=== PATIENT | female | born 1970 | race Caucasian/White ===

== ENCOUNTER 2016-12-27 16:00 | Inpatient (IN) | payer OTHER ==
--- NOTE | ~2016-12-27 | CR63 ---
[facility] A Service of [facility] & [facility] RADIOLOGY TEXT RESULTS PATIENT: AKIN HERNANDEZ LOCATION: C2A 242-01 : [birth year] UNIT #: [id number] AGE: [address]: Deuce March MD SEX: F ORDER DR: [id number] [facility] [address] [place], [place] [address] [id number] I MR#: [id number] Acc #: [id number] NAME: AKIN HERNANDEZ : 1970 SEX: F STUDY DATE/TIME: 01/02/2017 7:47 UNIT: C2A ROOM: 242 STUDY DESCRIPTION: CR Chest 2 View Attending Physician: Deuce March M.D. Ordering Physician: Deuce March M.D. Primary Care Physician: Edwin Barrera M.D. MEDICAL IMAGING REPORT This report is preliminary unless electronic signature is present EXAM Chest x-ray 01/02 INDICATIONS Cough, congestion and fever and shortness of air for 1 week. Pneumonia. FINDINGS 2 views of the chest are compared with 12/31/2016. There is a small to moderate hiatal hernia. Heart size is stable. There is some mild atelectasis in the bases and left mid lung. Lungs otherwise are clear. No pneumothorax. IMPRESSION Mild atelectasis in the bases and left mid lung. Stable hiatal hernia. Dictated by... Pop Mcallister Jr., M.D. THIS IS AN ELECTRONICALLY VERIFIED REPORT Pop Mcallister Jr., M.D. at 01/02/2017 4:41 PM ESPERANZA/barbara TD: 01/02/2017 08:02 JOB #: [id number] MEDICAL IMAGING REPORT Page 1 of 1 COPY
--- NOTE | ~2016-12-27 | EKG ---
PATIENT: AKIN HERNANDEZ UNIT #: [id number] Ventricular Rate: 91 BPM Atrial Rate: 91 BPM P-R Interval: 128 ms QRS Duration: 76 ms Q-T Interval: 372 ms QTC Calculation(Bezet): 457 ms P [facility]: 52 degrees Calculated R [facility]: 46 degrees Calculated T [facility]: 16 degrees Diagnosis Line: Normal sinus rhythm Diagnosis Line: Low voltage QRS Diagnosis Line: Borderline ECG Diagnosis Line: When compared with ECG of 27-JUL-2015 21:23, Diagnosis Line: Nonspecific T wave abnormality now evident in Diagnosis Line: Inferior leads Diagnosis Line: Confirmed by JEROD HORNER MD ([id number]) on 12/28/2016 Diagnosis Line: 6:14:05 AM INTERPRETING MD: EVENS PEÑA
--- NOTE | ~2016-12-27 | DS ---
Unit #: [id number] #: [id number] Patient: AKIN HERNANDEZ [id number] [address] [address] [id number] I MR#: [id number] NAME: KAIN HERNANDEZ ROOM: 242 Age: 46 Sex: F Admission Date: 12/27/2016 : 1970 Discharge Date: 01/02/2017 Attending Physician: Deuce March M.D. Primary Care Physician: Edwin Barrera M.D. DISCHARGE SUMMARY DISCHARGE DIAGNOSES 1. Acute hypoxemic respiratory failure. 2. Right middle lobe community acquired pneumonia. 3. Asthma exacerbation. 4. History of gastroesophageal reflux disease with large hiatal hernia. 5. Adult onset diabetes mellitus. 6. Obesity. 7. Anxiety/depression. DISCHARGE MEDICATIONS 1. Albuterol inhaler q.4 h. p.r.n. 2. Combivent 1 puff q.i.d. 3. Prednisone 40 mg for 4 days, decreasing by 10 mg every 4 days until off. 4. Ceclor 500 mg t.i.d. times 2 days. 5. Symbicort 160/4.5 two puffs b.i.d. 6. Pregabalin 50 mg t.i.d. 7. Sertraline 200 mg daily. 8. Atorvastatin 80 mg daily. 9. Buspirone 30 mg t.i.d. 10. Clonazepam 2 mg t.i.d. 11. Lantus 43 units daily. 12. Singulair 10 mg daily. 13. Prilosec 40 mg daily. FOLLOWUP Follow up in my office in two weeks. HOSPITAL COURSE The patient is a 46-year-old white female who we were asked to admit through the emergency room. She has been seen in our office for asthma, gastroesophageal reflux disease, hiatal hernia with reflux causing diffuse interstitial infiltrates. Please see admission history and physical. She was admitted with hypoxemic respiratory failure, asthma exacerbation and a right middle lobe pneumonia. Her white count was 9,300. Hematocrit was 37. She desaturated in the emergency room. She was treated with inhaled bronchodilators, IV Solu-Medrol and antibiotics with Rocephin and Zithromax. She had slow but gradual improvement. Her steroids were weaned. She was changed to p.o. antibiotics. Chest x-ray on the day of discharge showed some minimal left lower lobe atelectasis, but clearing of the right middle lobe infiltrate. Her wheezes had improved. Her oxygenation improved and her O2 saturations remained 93%-91% with ambulation. She will be discharged home on the above mentioned medications, to follow up in my office in two weeks. During her Unit #: [id number] #: [id number] Patient: MANUEL HERNANDEZA hospitalization she was placed on sliding scale insulin for hyperglycemia. Her last four glucoses were 216, 194, 93 and 231. She has been recommended on a diabetic diet. Dictated by... Bruce Meléndez/stewart TD: 01/03/2017 08:14 JOB #: [id number] CC: Deuce March M.D. DISCHARGE SUMMARY Page 1 of 1 X Deuce March MD X DISCHARGE SUMMARY
--- NOTE | ~2016-12-27 | CR63 ---
[facility] A Service of [facility] RADIOLOGY TEXT RESULTS PATIENT: AKIN HERNANDEZ LOCATION: [place] [address]-01 : [birth year] UNIT #: [id number] AGE: [address]: Deuce March MD SEX: F ORDER DR: [id number] [facility] [address] [place], [place] [address] [id number] E MR#: [id number] Acc #: [id number] NAME: AKIN HERNANDEZ : 1970 SEX: F STUDY DATE/TIME: 12/27/2016 14:33 UNIT: [facility] ROOM: STUDY DESCRIPTION: CR Chest 2 View Attending Physician: Pop Reese M.D. Ordering Physician: Pop Reese M.D. Primary Care Physician: Edwin Barrera M.D. MEDICAL IMAGING REPORT This report is preliminary unless electronic signature is present EXAM Chest x-ray 12/27/2016. HISTORY 46-year-old female in the ED complaining of 2-day history of shortness of air, cough, and congestion. TECHNIQUE PA and lateral upright chest series. FINDINGS The exam shows mild infiltrate in the right middle lobe partially obscuring the right heart border. Remaining portions of both lungs are clear. Mild cardiomegaly is stable. No dense airspace consolidation or pleural effusion. IMPRESSION Mild right middle lobe infiltrate. Dictated by... Edwin Chua M.D. THIS IS AN ELECTRONICALLY VERIFIED REPORT Edwin Chua M.D. at 12/28/2016 1:59 PM Mel TD: 12/27/2016 16:38 JOB #: [id number] MEDICAL IMAGING REPORT Page 1 of 1 COPY
--- NOTE | ~2016-12-27 | CR63 ---
[facility] A Service of [facility] RADIOLOGY TEXT RESULTS PATIENT: AKIN HERNANDEZ LOCATION: A 242-01 : [birth year] UNIT #: [id number] AGE: [address]: Deuce March MD SEX: F ORDER DR: [id number] [facility] [address] [place], [place] [address] [id number] I MR#: [id number] Acc #: [id number] NAME: AKIN HERNANDEZ : 1970 SEX: F STUDY DATE/TIME: 12/31/2016 7:18 UNIT: C2A ROOM: 242 STUDY DESCRIPTION: CR Chest 2 View Attending Physician: Deuce March M.D. Ordering Physician: Deuce March M.D. Primary Care Physician: Edwin Barrera M.D. MEDICAL IMAGING REPORT This report is preliminary unless electronic signature is present EXAM PA and lateral chest, 12/31 COMPARISON 12/27/2016 HISTORY Follow up pneumonia, shortness of breath with activity for 3-4 days. FINDINGS PA and lateral views of the chest are obtained. This study is directly compared to the patient's last study. Vascular interstitial markings have decreased. Heart size is stable. There is some volume loss in the left lower lobe posteriorly likely representing an area of airspace disease. The right middle lobe infiltrate has improved. CONCLUSION Minimal airspace disease left lower lobe posteriorly. Improvement in the right middle lobe infiltrate. Decrease in passive congestion and interstitial infiltrates since the last study. STAT * RESULT Dictated by... Rakesh Maki M.D. THIS IS AN ELECTRONICALLY VERIFIED REPORT Rakesh Maki M.D. at 01/01/2017 7:31 AM Berny TD: 12/31/2016 09:20 JOB #: [id number] [facility] A Service of [facility] RADIOLOGY TEXT RESULTS PATIENT: AKIN HERNANDEZ LOCATION: [place] [address]- : [birth year] UNIT #: [id number] AGE: [address]: Deuce March MD SEX: F ORDER DR: MEDICAL IMAGING REPORT Page 1 of 1 COPY
--- NOTE | ~2016-12-27 | CO ---
Unit #: [id number] #: [id number] Patient: AKIN HERNANDEZ [id number] [address] [address] [id number] I MR#: [id number] NAME: AKIN HERNANDEZ ROOM: 242 Age: 46 Sex: F Admission Date: 12/27/2016 : 1970 Attending Physician: Deuce March M.D. Primary Care Physician: Edwin Barrera M.D. CONSULTATION REPORT HISTORY OF PRESENT ILLNESS Ms. Hernandez is a 46-year-old female with a history of asthma, gastroesophageal reflux, adult onset diabetes, anxiety, depression, who presented with a three-day history of decreased shortness of breath, cough, wheezing and some diarrhea. She had been in her normal state of health prior to then. She does have a history of asthma. She is maintained on Breo. She says her breathing has not been as good on Breo as it was on Symbicort. She was seen in her primary care physician's office, Dr. Barrera at [facility], who noted an O2 saturation of 90% and told her to go to the emergency room. She was seen here in the emergency room. Chest x-ray revealed a right middle lobe infiltrate. Lab work showed a room air O2 saturation recorded at 92% but desaturations to 85% with ambulation. She was given normal saline one liter IV, p.o. doxycycline, ceftriaxone 2 g IV and then azithromycin 500 mg IV. We were called to admit the patient. Her chemistries are significant for a glucose of 129, BUN of 24, lactic acid 1.3. WBC count was 9,300, hematocrit 37, platelet count normal. She has had history of reflux with aspiration and has seen Dr. Villagomez for this. She said her current symptoms do not mimic that. PAST MEDICAL HISTORY Asthma, adult onset diabetes mellitus, gastroesophageal reflux, anxiety, depression. PAST SURGICAL HISTORY Total abdominal hysterectomy, EGD revealing large hiatal hernia with gastritis, history of colonoscopy with polyps which have been snared. SOCIAL HISTORY Reformed smoker. No alcohol. No illicit drugs. FAMILY HISTORY COPD. ALLERGIES Penicillin, theophylline, IV dye and sulfa. HOME MEDICATIONS 1. Klonopin. 2. BuSpar. 3. Prilosec. 4. Combivent. 5. Albuterol. 6. Lyrica. Unit #: [id number] #: [id number] Patient: AKIN HERNANDEZ 7. Lipitor. 8. Singulair. 9. Lantus. 10. Zoloft. 11. Breo. REVIEW OF SYSTEMS CONSTITUTIONAL: The patient did have fever and chills. HEENT: No rhinorrhea, nasal congestion. PULMONARY: As noted. CARDIAC: No chest pain. GASTROINTESTINAL: Some diarrhea. GENITOURINARY: No hematuria, dysuria. ENDOCRINE: The patient does have a history of adult onset diabetes mellitus. No thyroid dysfunction. NEUROLOGIC: No unilateral weakness or numbness. SKIN: No rash. PSYCHIATRIC: The patient does have a history of anxiety, depression. PHYSICAL EXAMINATION GENERAL APPEARANCE: White female, no distress, obese, sitting in bed, not using any accessory muscles, able to speak in complete sentences. VITAL SIGNS: Blood pressure 127/72. Pulse 79. Respiratory rate 18. Afebrile. HEENT: Normocephalic, atraumatic. Pupils equal, round and reactive. Sclerae nonicteric. Nasal passages patent. Posterior pharynx crowded. Poor dentition. NECK: Supple, thick. Trachea midline. No cervical or supraclavicular lymphadenopathy. LUNGS: Reveal some mild expiratory wheeze. CARDIAC: Regular rate and rhythm. I could not appreciate murmur, rub or gallop. ABDOMEN: Obese, nontender. Bowel sounds present. No hepatosplenomegaly. EXTREMITIES: Without clubbing, cyanosis or edema. NEUROLOGIC: Awake, oriented x3. Cranial nerves grossly intact. Muscle strength symmetric. DIAGNOSTIC STUDIES LABORATORY: Personally reviewed as noted. IMAGING: Personally reviewed as noted. IMPRESSION 1. Right middle lobe pneumonia. 2. Asthma exacerbation. 3. History of reflux. 4. Large hiatal hernia. 5. Adult onset diabetes. 6. Obesity. 7. Anxiety, depression. PLAN We will treat for community-acquired pneumonia with Rocephin and Zithromax. Treat asthma with inhaled bronchodilators and steroids. We will continue home medicines. We will place on sliding scale insulin while on steroids due to history of adult onset diabetes mellitus. Further recommendations pending this. Unit #: [id number] #: [id number] Patient: AKIN HERNANDEZ Dictated by... LorBruce Stack TD: 12/28/2016 12:11 JOB #: [id number] CONSULTATION REPORT Page 1 of 1 X Deuce March MD CONSULTATION REPORT
[2016-12-27 14:28] LABS: BASOPHIL% 0.2 % (0-2.5); HEMOGLOBIN 11.6 gm/dL (12.0-16.0); LYMPHOCYTE# 0.6 X10e3 (1.0-3.5); LYMPHOCYTE% 6.4 % (17.0-45.0); MEAN CELL VOLUME 88.5 FL (83-96); MEAN CORPUSCULAR HEMOGLOBIN 27.8 PG (28-34); MEAN CORPUSCULAR HGB CONC 31.4 g/dL (30-36); MEAN PLATELET VOLUME 8.2 FL (6.5-11.5); MONOCYTE# 0.5 X10e3 (0-1.0); MONOCYTE% 5.2 % (3.0-12.0); NEUTROPHIL# 8.2 X10e3 (1.5-7.1); NEUTROPHIL% 88.2 % (40-75); PLATELET COUNT 162 X10e3 (140-420); RED BLOOD COUNT 4.18 X10e (3.90-5.30); WHITE BLOOD COUNT 9.3 X10e3 (4.0-10.5)
[2016-12-27 14:32] LABS: DIFF IND NO
[2016-12-27 14:45] LABS: BUN/CREATININE RATIO 18.46; CREATININE SERUM 1.3 mg/dL (0.6-1.4); GLOM FILT RATE Estimated 49.5 mL/min (>60); POTASSIUM 3.6 mmol/L (3.5-5.1)
[~2016-12-27 16:00] MED LIST: ADVAIR 2501 DISK W/D PO; ALBUTEROL MININEB NEB; ALBUTEROL0.83 MG/ML IH; ALBUTEROL17 GM INH; AZITHROMYCIN250 MG PO; CARAFATE1 GM PO; CLARITIN10 MG PO; COMBIVENT INH14.7 G1 IH; COMBIVENT INH14.7 GM INH; COMBIVENT MININEB INH; COMBIVENT RESPIM4 GM IH; COMBIVENT RESPIM4 GM IN; COMBIVENT RESPIM4 GM INH; COMBIVENT U/D3 M2 INH; DIOVAN HCT 80/11 TAB PO; ESTRADIOL1 EAC2; FERROUS SULFATE PO; GEODAN PO; HUMULIN 70/30 V10 ML SUBQ; IRON1 TA1 PO; KLONOPIN PO; KLONOPIN1 MG PO; KLONOPIN2 MG PO; LANTUS100 U/ML SUBQ; LANTUS100 UNITS/ PO; LEVAQUIN PO; LEVAQUIN750 M1 PO; LEVAQUIN750 MG PO; LIPITOR PO; LIPITOR80 MG PO; LISINOPRIL20 MG PO; NEURONTIN600 MG DOB; NEURONTIN600 MG PO; NORVASC PO; OMEPRAZOLE20 M1 PO; OMEPRAZOLE20 M2 PO; PREDNISONE PO; PREDNISONE10 MG PO; PREDNISONE10 MG/DOSE PO; PRILOSEC20 MG DOB; PRILOSEC20 MG PO; SERTRALINE HCL100 MG PO; SINGULAIR PO; SYMBICORT 160/4.6 G1 IH; SYMBICORT 16010.2 GM INH; SYMBICORT INH; TEGRETOL PO; TRAZODONE PO; VICODIN 5/1 TAB 5/50 PO; XANAX1 MG PO; XANAX2 MG PO; ZOFRAN PO; ZOLOFT PO; ZOLOFT100 MG PO
[2016-12-27] MEDS ORDERED: LYRICA50 MG PO (17:50)
[2016-12-27] MEDS ORDERED: LANTUS100 U/ML SUBQ (17:51)
[2016-12-27] MEDS ORDERED: SINGULAIR PO (17:51)
[2016-12-27] MEDS ORDERED: ZOLOFT100 MG PO (17:51)
[2016-12-27] MEDS ORDERED: LIPITOR80 MG PO (17:51)
[2016-12-27] MEDS ORDERED: COMBIVENT RESPIM4 GM IN (17:52)
[2016-12-27] MEDS ORDERED: BUSPAR30 MG PO (17:52)
[2016-12-27] MEDS ORDERED: PRILOSEC PO (17:52)
[2016-12-27] MEDS ORDERED: KLONOPIN2 MG PO (17:52)
[2016-12-27] MEDS ORDERED: ALBUTEROL2.5 MG/3 M INH (17:53)
[2016-12-29 06:48] LABS: LEGIONELLA AG URINE NEG (NEG)
[2017-01-02] MEDS ORDERED: DELTASONE20 MG PO (14:02)
[2017-01-02] MEDS ORDERED: SYMBICORT INH (14:02)
[2017-01-02] MEDS ORDERED: CECLOR500 MG PO (14:03)
== END 2017-01-02 15:47 | disposition home or self-care (01) | DRG 177 ==
LOC: CED 16:00 → CEDOF 16:50 → C2A 19:58
PROVIDERS: Emergency Medicine; Internal Medicine
DX: J69.0 Pneumonitis due to inhalation of food and vomit (principal); J96.01 Acute respiratory failure with hypoxia; J45.901 Unspecified asthma with (acute) exacerbation; K21.9 Gastro-esophageal reflux disease without esophagitis; K44.9 Diaphragmatic hernia without obstruction or gangrene; E11.9 Type 2 diabetes mellitus without complications; Z79.84 Long term (current) use of oral hypoglycemic drugs; E66.9 Obesity, unspecified; F41.9 Anxiety disorder, unspecified; F32.9 Major depressive disorder, single episode, unspecified; Z79.4 Long term (current) use of insulin; Z68.31 Body mass index [BMI] 31.0-31.9, adult
CPT/HCPCS: 36415; 71020; 80048; 82947; 83605; 85025; 87040; 87070; 87205; 87449; 87899; 93005; 94640; 94664; 94760; 96360; 99285; J0456; J0696; J1040; J1815

== ENCOUNTER → 2017-02-05 | Outpatient (CLI) | payer OTHER ==
[~2017-02-05] MED LIST changes: +ALBUTEROL2.5 MG/3 M INH; +BUSPAR30 MG PO; +CECLOR500 MG PO; +DELTASONE20 MG PO; +LYRICA50 MG PO; +PRILOSEC PO
--- NOTE | ~2017-02-05 | CT57 ---
[facility] A Service of [facility] RADIOLOGY TEXT RESULTS PATIENT: AKIN HERNANDEZ LOCATION: [facility] : [birth year] UNIT #: [id number] AGE: [address]: Jayda Marino APRN SEX: F ORDER DR: [id number] [place] [id number] [facility] [place] [address] [place], [place] [address] [id number] MR#: [id number] Acc #: [id number] NAME: AKIN HERNANDEZ : 1970 SEX: F STUDY DATE/TIME: 02/05/2017 13:58 UNIT: [facility] ROOM: STUDY DESCRIPTION: CT Chest Wo Cont Attending Physician: Jayda Marino A.P.R.N. Referring Physician: Jayda Marino A.P.R.N. Ordering Physician: Jayda Marino A.P.R.N. Primary Care Physician: Edwin Barrera M.D. MEDICAL IMAGING REPORT This report is preliminary unless electronic signature is present EXAM Chest CT without contrast INDICATIONS Abnormal chest x-ray. Pneumonia 2 months ago. No current symptoms. TECHNIQUE Unenhanced CT chest. This CT exam was performed with one or more of the following radiation dose reduction techniques: automatic exposure control, adjustment of mA and/or kV according to patient size, and iterative reconstruction. COMPARISON STUDIES 12/24/2014. FINDINGS Diffuse interstitial prominence with scattered areas of clustered micro nodularity in both lungs, greatest in the right upper lobe and right middle lobe. This appearance is very similar to 2015. The previously demonstrated, superimposed, more dense areas of consolidation have resolved. There is no dense consolidation on the current study. No pleural fluid or pneumothorax. No adenopathy. There is a small pericardial effusion. Moderate-sized hiatal hernia. No aggressive appearing bone lesion. IMPRESSION 1. No definite acute findings. 2. Chronic-appearing interstitial prominence and scattered areas of clustered micro-nodularity, similar to 2015. This may represent post infectious or inflammatory change, or chronic infectious or inflammatory process. This does not have the appearance of [facility] A Service of [facility] RADIOLOGY TEXT RESULTS PATIENT: AKIN HERNANDEZ LOCATION: [facility] #: [id number] : [birth year] UNIT #: [id number] AGE: [address]: Jayda Marino APRN SEX: F ORDER DR: interstitial lung disease. Dictated by... Aleksander Vallecillo M.D. THIS IS AN ELECTRONICALLY VERIFIED REPORT Aleksander Vallecillo M.D. at 02/06/2017 7:35 AM EED/pcl TD: 02/05/2017 22:53 JOB #: [id number] MEDICAL IMAGING REPORT Page 1 of 1 COPY
== END | disposition home or self-care (01) ==
LOC: CCAT 13:40
DX: J18.9 Pneumonia, unspecified organism (principal); R91.8 Other nonspecific abnormal finding of lung field
CPT/HCPCS: 71250